=== PATIENT | female | born 1955 | race Caucasian/White ===

== ENCOUNTER 2019-08-15 08:15 | Outpatient (CLI) | payer OTHER, SELFPAY ==
--- NOTE | 2019-08-15 08:20 | MM_ITS ---
WS: [id number] BILATERAL SCREENING DIGITAL MAMMOGRAM WITH CAD HISTORY: SCREENING COMPARISON: 11/30/2014 and 11/20/2013 Bilateral CC and MLO views submitted. Computer aided detection analyzed. Breast composition: The breasts are extremely dense, which lowers the sensitivity of mammography. No suspicious masses, microcalcifications or architectural distortion. Benign calcifications in each josh ast. There is no distortion. MM/[place] [id number] IMPRESSION: BI-RADS: 2-Benign FOLLOW UP: 1 Year Follow-up
== END 2019-08-15 08:16 | disposition home or self-care (01) ==
LOC: RADSHAW 08:18
PROVIDERS: PCP Family Medicine; Visit Provider Family Medicine
DX: Z12.31 Encounter for screening mammogram for malignant neoplasm of breast (principal)
CPT/HCPCS: 77067

== ENCOUNTER 2019-11-05 05:50 | Day surgery (SDC) | payer OTHER, SELFPAY ==
[2019-11-04 13:04] VITALS: BMI 22.2
[2019-11-05 06:05] VITALS: BP 96/68; PULSE 63; RESP 18; TEMP 36.8; O2SAT 97
--- NOTE | 2019-11-05 06:20 | ANES.PREANE2 ---
Pre-Anesthetic Assessment Pre-Anesthetic Assessment: Height/Weight: Height 1.68 m Weight 62.596 kg Temp Pulse Resp BP Pulse Ox 98.3 F 63 18 96/68 97 11/05/19 06:05 11/05/19 06:05 11/05/19 06:05 11/05/19 06:05 11/05/19 06:05 Preop Diagnosis: conjunctival papilloma Proposed Procedure: Operation Date: 11/05/19 07:00 Proposed Procedures p Conjunctival Papilloma Excision(Not Applicable) - Aric Roque MD Familial anesthetic complications: PONV Was Beta Ayleen taken within 24 hours: N/A Last intake: Intake Last Liquid Date 11/04/19 Last Liquid Time 21:00 Last Solid Date 11/04/19 Last Solid Time 17:30 Social: Social History: No alcohol and No tobacco Exam: Pre-Anes Outpt Exam: alert, oriented x 3, clear to auscultation bilaterally and regular rate & rhythm Airway: Cervical ROM: WNL MP: 2 Dentition: Full Anesthetic Plan: ASA status: 1 Anesthesia: MAC Risk of > 500 ml blood loss (7ml/kg in children): No Data Anesthesia Cardiac Studies: No Data to Display
[2019-11-05] MEDS: triamcinolone 40 mg/mL SDV XX (07:31)
--- NOTE | 2019-11-05 07:38 | W.PM.OPSFHP ---
Same Day Surgery H&P Indication for Procedure/HPI DATE OF PROCEDURE: November 05, 2019 CHIEF COMPLAINT/INDICATIONFOR SURGICAL PROCEDURE: Slowly growing hyperemic nodule of the right inferior caruncle. She has had minimal pain. Mild mucoid discharge intermittently but no history of trauma in that area. PREOP DIAGNOSIS: conjunctival papilloma PLANNED PROCEDRUE: Resection of right conjunctival/caruncular papilloma Operation Date: 11/05/19 07:00 Proposed Procedures p Conjunctival Papilloma Excision(Not Applicable) - Aric Roque MD Medications/Allergies* Home Medications Medication Instructions Recorded Confirmed Type cetirizine 5 mg PO DAILY 11/04/19 11/05/19 History Allergies/Adverse Reactions Allergy/AdvReac Type Severity Reaction Status Date / Time Penicillins Allergy Unknown Verified 11/04/19 12:59 Pertinent Exam Findings alert, clear to auscultation bilaterally, regular rate & rhythm, operative site marked and procedure specific exam findings (Hyperemic papillomatous growth of the inferior portion of the right caruncle) Recommendations Surgery/Procedure today ( resection of caruncle papilloma with intra-stromal Kenalog injection right medial canthus.) Coding Level of Care Code Acute Fruit Harvester for Coleen Garrido
[2019-11-05 07:40] VITALS: BP 92/58; PULSE 55; RESP 18; TEMP 36.1; O2SAT 100
--- NOTE | 2019-11-05 07:43 | PM.OP ---
Operative Report Date of procedure: November 05, 2019 Pre-op Diagnosis: conjunctival papilloma Post-op diagnosis: same Post-op Findings: Hyperemic nodule growing at the inferior caruncle of the right medial canthus with a fibrovascular stalk Procedure Done: Resection of the papilloma with cautery of the base and injection of Kenalog Pathology: other (Papilloma was sent for pathologic confirmation) Anesthesia: MAC (Propofol sedation with anesthesia monitoring) Estimated blood loss (mL): 0.001 Complications: None Findings: The patient was brought to the operating table were blood pressure and cardiac monitoring devices were applied. Timeout was called with the proper patient and procedure identified intravenous sedation was given and a Betadine wash was applied of the right side of the face. Sterile drapes were applied and a lid speculum was inserted between the right upper and lower lids. Using the operative microscope for visualization, an injection of 2% lidocaine with epinephrine was given at the base of the pedicle of the papilloma at the inferior portion of the caruncle. A Melly scissor was then used to resect the stalk of the papilloma and disposable cautery was used for hemostasis. 0.1 cc of Kenalog was infused at the base of the cauterized tissue. Inspection revealed no ongoing bleeding and complete resection of the papillomas tissue. The papilloma was sent for pathology confirmation Condition: stable (Alert and oriented to the recovery room) Disposition: PACU (No complications.)
--- NOTE | 2019-11-05 07:48 | W.PM.OPSUD ---
Surgery/Procedure H&P Update DATE OF PROCEDURE: November 05, 2019 DATE H&P PERFORMED: 11/05/19 PREOP DIAGNOSIS: conjunctival papilloma PLANNED PROCEDURE: Operation Date: 11/05/19 07:00 Proposed Procedures p Conjunctival Papilloma Excision(Not Applicable) - Aric Roque MD
--- NOTE | 2019-11-05 07:49 | P.HP_ITS ---
Providers/Chief Complaint Primary Care Provider: Jaime Navas MD History of Present Illness Lori Xiao is a 64 year old female with a slow-growing nonirritating papilloma of the right inferior caruncle Medications/Allergies Home Medications Medication Instructions Recorded Confirmed Last Taken Type cetirizine 5 mg PO DAILY 11/04/19 11/05/19 11/04/19 History Allergies Allergy/AdvReac Type Severity Reaction Status Date / Time Penicillins Allergy Unknown Verified 11/04/19 12:59 Vital Signs Vitals Signs: Last Vital Signs Temp 98.3 F 11/05/19 06:05 Pulse 63 11/05/19 06:05 Resp 18 11/05/19 06:05 BP 96/68 11/05/19 06:05 Pulse Ox 97 11/05/19 06:05 Weight: Weight last 48 hrs Weight 138 lb Physical Exam Narrative: EXAM NARRATIVE: Mrs. Xiao is a healthy woman with a recently growing papilloma of the right inferior caruncle. She has had mild discharge from the lesion but no significant pain. It is obstructing her inferior punctum and visually distracting to her. Eye: COMMON NORMALS: Equal, round and reactive pupils present, EOMs intact bilaterally, conjunctivae normal (Right inferior caruncle papilloma with vascularization typical of the same.) and fundi normal bilaterally VISUAL ACUITY: Yes acuity normal ALIGNMENT: Yes alignment normal EYELID: eyelids normal CONJUNCTIVA: Yes other (Caruncular papilloma as described above.) SCLERA: sclerae normal CORNEA: Yes corneas normal Chest: COMMONS NORMALS: normal inspection of the chest, normal palpation of entire chest wall, normal inspection of the breasts and normal palpation of the breasts Resp: COMMON NORMALS: normal respiratory effort, No retractions, No use of accessory muscles, clear to auscultation bilaterally and percussion normal Cardio: COMMON NORMALS: no JVD, regular rate, regular rhythm, S1 normal heart sound present, S2 normal heart sound present, No gallops present (Cardio), No clicks present (Cardio), No murmurs present (Cardio), No rub (Cardio) and Peripheral pulses 2+ throughout A&P Additional A&P Information Slowly growing right inferior caruncular papillomatous growth to be resected today. Coding Level of Care Code Acute Solid Die Cutter for michelle Garrido
--- NOTE | 2019-11-05 07:53 | ANE.PACU2 ---
Inpatient post-anesthesia follow up: Airway intact: Yes Vital signs: Temperature 97.0 F Pulse Rate 55 Respiratory Rate 18 Blood Pressure 92/58 Pulse Oximetry 100 Oxygen Delivery Me thod Room Air Oxygen Flow Rate Fraction of Inspir ed Oxygen Hydration adequate: Yes Nausea and vomiting: No Pain level: 1 Mental status: Baseline
[2019-11-05 08:07] VITALS: BP 105/66; PULSE 49; RESP 18; TEMP 36.1; O2SAT 100
[2019-11-05] MEDS: sodium chloride 0.9% 1,000 ML 30 ML IV (08:25)
[2019-11-05 19:47] LABS: Coronavirus Lab Test PTC Negative
== END 2019-11-05 08:28 | disposition home or self-care (01) ==
PROVIDERS: PCP Family Medicine; Visit Provider Ophthalmology
PROC: (CPT 68110; principal; 2019-11-05 07:00)
DX: L98.0 Pyogenic granuloma (principal); Z20.828 Contact with and (suspected) exposure to other viral communicable diseases
CPT/HCPCS: 68110; 12345; 87635; 88304; J2704; J3010; J3301; J7030

== ENCOUNTER → 2019-11-18 10:30 | Outpatient (BNVA) | payer OTHER, SELFPAY | PROVIDERS: PCP Family Medicine; Referring Provider Dermatology; Visit Provider Dermatology | DX: L71.8 Other rosacea (principal); L73.8 Other specified follicular disorders; L81.7 Pigmented purpuric dermatosis | CPT/HCPCS: 99203 ==

== ENCOUNTER 2020-03-11 09:21 | Outpatient (CLI) | payer OTHER, SELFPAY ==
[2020-03-11 11:49] LABS: Erythrocyte Sedimentation Rate 9 mm/hr (0-15)
[2020-03-11 13:25] LABS: Free T4 Free Thyroxine 1.27 ng/dL (0.82-1.77); Thyroid Stimulating Hormone 2.09 uIU/mL (0.27-4.20)
[2020-03-12 16:02] LABS: Anti-Nuclear Antibody Screen NEGATIVE (NEGATIVE)
== END 2020-03-11 09:22 | disposition home or self-care (01) ==
PROVIDERS: PCP Family Medicine; Visit Provider Specialist
DX: T78.3XXA Angioneurotic edema, initial encounter (principal); X58.XXXA Exposure to other specified factors, initial encounter
CPT/HCPCS: 84439; 84443; 85651; 86038; 86160

== ENCOUNTER 2020-11-26 07:08 | Outpatient (CLI) | payer OTHER, SELFPAY ==
--- NOTE | 2020-11-26 07:17 | MM_ITS ---
WS: [id number] BILATERAL SCREENING DIGITAL MAMMOGRAM WITH CAD HISTORY: SCREEN COMPARISON: 08/15/2019 and 11/30/2014 Bilateral CC and MLO views submitted. Computer aided detection analyzed. Breast composition: The breasts are extremely dense, which lowers the sensitivity of mammography. No suspicious masses, microcalcifications or architectural distortion. Scattered calcifications. No camp ge in the overall appearance of either breast. MM/[place] [id number] IMPRESSION: BI-RADS: 2-Benign FOLLOW UP: 1 Year Follow-up
== END 2020-11-26 07:09 | disposition home or self-care (01) ==
LOC: RADSHAW 07:12
PROVIDERS: PCP Family Medicine; Visit Provider Family Medicine
DX: Z12.31 Encounter for screening mammogram for malignant neoplasm of breast (principal)
CPT/HCPCS: 77067

== ENCOUNTER 2021-07-25 07:34 | Outpatient (CLI) | payer OTHER, SELFPAY | END 2021-07-25 07:35 | disposition home or self-care (01) | PROVIDERS: PCP Family Medicine; Visit Provider Internal Medicine | DX: Z91.018 Allergy to other foods (principal) | CPT/HCPCS: 36415; 86003 ==

== ENCOUNTER 2021-12-05 11:39 | Outpatient (CLI) | payer OTHER, SELFPAY ==
--- NOTE | 2021-12-05 11:47 | MM_ITS ---
WS: [id number] . SCREENING DIGITAL BREAST TOMOSYNTHESIS MAMMOGRAM WITH CAD HISTORY: SCREENING COMPARISON: 11/26/2020 and 08/15/2019 Bilateral CC and MLO with tomosynthesis and synthetic mammography submitted. Computer aided detection analyzed. Breast composition: The breasts are extremely dense, which lowers the sensitivity of mammography. Par tially obscured asymmetry measuring 9 mm in the anterior RIGHT breast. Just above the nipple on the l ateral projection and probably just posterior to the nipple on the CC projection. MM/[place] [id number] IMPRESSION: BI-RADS: 0-Incomplete: Need additional imaging evaluation FOLLOW UP: Need Additional Imaging RIGHT breast: Spot compression views (CC and MLO). True ML. Ultrasound to follo w if abnormality persists.
== END 2021-12-05 11:40 | disposition home or self-care (01) ==
LOC: RAD 11:39
PROVIDERS: PCP Family Medicine; Visit Provider Family Medicine
DX: Z12.31 Encounter for screening mammogram for malignant neoplasm of breast (principal)
CPT/HCPCS: 77063; 77067

== ENCOUNTER 2021-12-21 13:44 | Outpatient (CLI) | payer OTHER, SELFPAY ==
--- NOTE | 2021-12-21 13:54 | MM_ITS ---
WS: [id number] ADDITIONAL VIEWS RIGHT MAMMOGRAM WITH DIGITAL BREAST TOMOSYNTHESIS. RIGHT BREAST ULTRASOUND HISTORY: ABNORMAL MAMMO COMPARISON: 12/05/2021, 11/26/2020 and 08/15/2019 RIGHT MAMMOGRAM: Spot compression views and true ML with digital breast tomosynthesis and SM. The asymmetry nearly completely resolves. Breast is very dense and heterogeneous. No distortion. Ultr asound will be performed at the 12:00 axis to confirm no underlying abnormality. RIGHT BREAST ULTRASOUND 2-D and color Doppler imaging submitted. Ultrasound is directed to the anterior RIGHT breast near 12:00. There is very dense fibroglandular ti ssue. No mass or shadowing. No distortion. MM/[place] [id number] IMPRESSION: BI-RADS: 2-Benign FOLLOW UP: 1 Year Follow-up Recommend return to annual screening mammography. No persistent fibroglandular density or mass.
== END 2021-12-21 13:45 | disposition home or self-care (01) ==
LOC: RAD 13:44
PROVIDERS: PCP Family Medicine; Visit Provider Family Medicine
DX: R92.8 Other abnormal and inconclusive findings on diagnostic imaging of breast (principal)
CPT/HCPCS: 76642; 77061

== ENCOUNTER → 2022-04-10 12:03 | Outpatient (BNVA) | payer SELFPAY | PROVIDERS: Visit Provider Dermatology | DX: Z13.6 Encounter for screening for cardiovascular disorders (principal) | CPT/HCPCS: 80061; 82947; 83036 ==

== ENCOUNTER 2023-01-02 12:08 | Outpatient (CLI) | payer MEDICARE, OTHER, SELFPAY ==
--- NOTE | 2023-01-02 12:47 | MM_ITS ---
WS: [id number] BILATERAL 3D TOMOSYNTHESIS DIGITAL SCREENING MAMMOGRAPHY WITH CAD CLINICAL INFORMATION: SCREENING HISTORY: Screening mammogram. No current complaints. COMPARISON: 2021 TECHNIQUE: Bilateral CC and MLO views. FINDINGS: The breasts are composed of heterogeneous fibroglandular density tissue, which can limit the detectio n of small underlying mass lesions. No suspicious mass, asymmetry, calcifications, or architectural d istortion. No evidence of malignancy. Incidental punctate and lucent centered calcifications. IMPRESSION: MM/[place] [id number] BI-RADS: 2-Benign FOLLOW UP: 1 Year Follow-up Recommend return to annual screening mammography.
== END 2023-01-02 12:09 | disposition home or self-care (01) ==
PROVIDERS: PCP Family Medicine; Visit Provider Family Medicine
DX: Z12.31 Encounter for screening mammogram for malignant neoplasm of breast (principal)
CPT/HCPCS: 77063; 77067

== ENCOUNTER → 2023-01-16 10:50 | Outpatient (BNVA) | payer MEDICARE, OTHER, SELFPAY | PROVIDERS: PCP Family Medicine; Visit Provider Nurse Practitioner Family | DX: L80 Vitiligo (principal); L57.8 Other skin changes due to chronic exposure to nonionizing radiation; L81.4 Other melanin hyperpigmentation; D22.4 Melanocytic nevi of scalp and neck | CPT/HCPCS: 99214 ==

== ENCOUNTER 2023-07-11 13:10 | Outpatient (CLI) | payer MEDICARE, OTHER, SELFPAY ==
--- NOTE | 2023-07-11 10:14 | XR_ITS ---
WS: [id number] views of the right fifth finger, 07/11/2023 Clinical Data: PAIN IN RIGHT 5TH FINGER Comparison: None. Findings: No fractures or dislocations are seen. The soft tissues are normal. The joint spaces are not remarka ble. XR/XR finger RT min 2V [id number] Impression: Negative right fifth finger.
== END 2023-07-11 13:11 | disposition home or self-care (01) ==
LOC: RADOUTREAD 13:11
PROVIDERS: PCP Family Medicine; Visit Provider Family Medicine
DX: M79.644 Pain in right finger(s) (principal)
CPT/HCPCS: 73140

== ENCOUNTER 2023-08-13 12:45 | Outpatient (CLI) | payer MEDICARE, OTHER, SELFPAY ==
--- NOTE | 2023-08-13 12:48 | XR_ITS ---
WS: [id number] SCREENING DEXA SCAN [place] CLINICAL INFORMATION: POSTMENOPAUSAL COMPARISON: None. FINDINGS: The L1-L4 bone mineral density measures 0.997 g/cm2. This corresponds to a T score score of -1.5 and Z score of 0.3. Left femoral neck bone mineral density measures 0.754 g/cm2. This corresponds to a T score of -2.0 an d Z score of -0.5. Right femoral neck bone mineral density measures 0.741 g/cm2. This corresponds to a T score -2.1of an d Z score of -0.6. Mean femoral neck bone mineral density measures 0.748 g/cm2. This corresponds to a T score of -2.1 an d Z score of -0.6. XR/XR DEXA axial skeleton* [id number] IMPRESSION: Osteopenia lumbar spine. Osteopenia femoral necks. Patient's FRAX calculated 10 year probability for major osteoporotic fracture i s 11.7% and osteoporotic hip fracture is 2.5%.
== END 2023-08-13 12:46 | disposition home or self-care (01) ==
LOC: RAD 12:45
PROVIDERS: PCP Family Medicine; Visit Provider Family Medicine
DX: Z78.0 Asymptomatic menopausal state (principal); M85.80 Other specified disorders of bone density and structure, unspecified site
CPT/HCPCS: 77080

== ENCOUNTER 2024-01-11 08:33 | Outpatient (CLI) | payer MEDICARE, OTHER, SELFPAY ==
--- NOTE | 2024-01-11 08:36 | MM_ITS ---
WS: [id number] BILATERAL SCREENING DIGITAL TOMOSYNTHESIS MAMMOGRAM WITH CAD HISTORY: SCREENING COMPARISON: 01/02/2023, 12/21/2021, 08/15/2019 Bilateral CC and MLO views with tomosynthesis and synthetic mammography submitted. Computer aided det ection analyzed. Breast composition: The breasts are extremely dense, which lowers the sensitivity of mammography. No suspicious masses, microcalcifications or architectural distortion. Scattered calcifications. Breasts are extremely dense with scattered asymmetries which appear stable. MM/MM scr tomosynthesis [id number] IMPRESSION: BI-RADS: 2 - Benign FOLLOW UP: 1 Year Follow-up
== END 2024-01-11 08:34 | disposition home or self-care (01) ==
LOC: RAD 08:34
PROVIDERS: PCP Family Medicine; Visit Provider Family Medicine
DX: Z12.31 Encounter for screening mammogram for malignant neoplasm of breast (principal); R92.333 Mammographic heterogeneous density, bilateral breasts; R92.1 Mammographic calcification found on diagnostic imaging of breast; N64.89 Other specified disorders of breast
CPT/HCPCS: 77063; 77067

== ENCOUNTER → 2024-01-17 10:27 | Outpatient (BNVA) | payer MEDICARE, OTHER, SELFPAY | PROVIDERS: PCP Family Medicine; Visit Provider Nurse Practitioner Family | DX: L80 Vitiligo (principal); D22.39 Melanocytic nevi of other parts of face; L57.8 Other skin changes due to chronic exposure to nonionizing radiation; L81.4 Other melanin hyperpigmentation | CPT/HCPCS: 99214 ==

== ENCOUNTER → 2025-01-08 08:26 | Outpatient (BNVA) | payer MEDICARE, OTHER, SELFPAY | PROVIDERS: PCP Family Medicine; Visit Provider Nurse Practitioner Family | DX: L80 Vitiligo (principal); D22.39 Melanocytic nevi of other parts of face; L57.8 Other skin changes due to chronic exposure to nonionizing radiation; L81.4 Other melanin hyperpigmentation | CPT/HCPCS: 99214 ==

== ENCOUNTER 2025-01-19 08:18 | Outpatient (CLI) | payer MEDICARE, OTHER, SELFPAY ==
--- NOTE | 2025-01-19 08:23 | MM_ITS ---
WS: [id number] BILATERAL SCREENING DIGITAL TOMOSYNTHESIS MAMMOGRAM WITH CAD HISTORY: SCREENING COMPARISON: 01/11/2024, 01/02/2023, 12/05/2021 Bilateral CC and MLO views with tomosynthesis and synthetic mammography submitted. Computer aided detection analyzed. Breast composition: The breasts are extremely dense, which lowers the sensitivity of mammography. No suspicious masses, microcalcifications or architectural distortion. Benign calcifications in each breast. MM/MM [facility] tomosynthesis [id number] IMPRESSION: BI-RADS: 2 - Benign FOLLOW UP: 1 Year Follow-up
== END 2025-01-19 08:19 | disposition home or self-care (01) ==
LOC: RAD 08:20
PROVIDERS: PCP Family Medicine; Visit Provider Family Medicine
DX: Z12.31 Encounter for screening mammogram for malignant neoplasm of breast (principal); R92.343 Mammographic extreme density, bilateral breasts; R92.1 Mammographic calcification found on diagnostic imaging of breast
CPT/HCPCS: 77063; 77067